=== PATIENT | male | born 1950 | race Caucasian/White ===

== ENCOUNTER → 2017-01-14 | Outpatient (CLI) | payer MEDICARE, BC ==
[~2017-01-14] MED LIST: ASPIRIN 81M81 MG/TA2 PO; OMEGA 31000 MG; ONE-A-DAY ACTIV1 TAB PO; OSTEO-BI-FLEX 21 TAB PO; PRAVACHOL 20MG20 MG PO; PRINIVIL10 MG PO; VITAMIN B COMPL1 T16 PO; VITAMIN D1000 IU PO
== END ==
LOC: MHCPAIN 10:18
DX: G89.29 Other chronic pain (principal); M47.817 Spondylosis without myelopathy or radiculopathy, lumbosacral region; M53.3 Sacrococcygeal disorders, not elsewhere classified; Z79.82 Long term (current) use of aspirin
CPT/HCPCS: G0463

== ENCOUNTER → 2017-02-10 | Outpatient (CLI) | payer MEDICARE, BC | LOC: MHCPAIN 08:58 | DX: G89.29 Other chronic pain (principal); M47.817 Spondylosis without myelopathy or radiculopathy, lumbosacral region; M53.3 Sacrococcygeal disorders, not elsewhere classified; Z79.82 Long term (current) use of aspirin | CPT/HCPCS: G0463 ==